=== PATIENT | male | born 2000 | race Caucasian/White ===

== ENCOUNTER 2018-04-29 10:00 | Emergency (ER) | payer OTHER ==
[~2018-04-29] VITALS: Ht 162.6 cm; Wt 68.5 kg
--- NOTE | 2018-04-29 12:15 | ED Cough/URI ---
General Chief Complaint: Cough/Cold/Flu Symptoms Stated Complaint: UPPER CHEST CONGESTION Nursing Triage Note: COUGH WITH CONGESTION Sepsis Screen: No Definite Risk Source: patient Exam Limitations: no limitations History of Present Illness Date Seen by Provider: Apr 29, 2018 Time Seen by Provider: 12:10 Initial Comments To ER with a nonproductive cough, pain in his chest with coughing for the past week. He denies sore throat or runny nose. He has had chills. He was seen at [facility] at the onset of this and prescribed prednisone and Zithromax. He finished the Zithromax yesterday but denies any improvement. No history of asthma. Timing/Duration: week Severity/Quality: dry cough Associated Symptoms: cough, fever/chills Allergies and Home Medications Allergies Coded Allergies: No Known Drug Allergies (Unverified , 04/29/18) Patient Home Medication List Home Medication List Reviewed: Yes Review of Systems Review of Systems Constitutional: see HPI, chills EENTM: see HPI Respiratory: see HPI, cough Cardiovascular: no symptoms reported Genitourinary: no symptoms reported Musculoskeletal: no symptoms reported Skin: no symptoms reported Psychiatric/Neurological: No Symptoms Reported Hematologic/Lymphatic: No Symptoms Reported Immunological/Allergic: no symptoms reported Past Ggsltiu-Xlclcd-Awrsrc Hx Patient Social History Recent Foreign Travel: No Contact w/Someone Who Travel: No Recent Infectious Disease Expo: No Physical Exam Vital Signs - First Documented 04/29/18 11:05 Temp 98.6 Pulse 47 Resp 14 B/P (MAP) 104/56 (72) Pulse Ox 91 O2 Delivery Room Air Capillary Refill : Less Than 3 Seconds Height: 5'4.00" Weight: 151lbs. oz. 68.299157bm; BMI Method:Estimated General Appearance: WD/WN, no apparent distress, other (no distress, speaks in full sentences, no wheezing, good air movement on lung auscultation. No throat erythema. He does have a persistent cough. He'll benefit from cough suppressant but he started on steroids and has been on antibiotic, this is viral.) Eyes: Bilateral Eye Normal Inspection, Bilateral Eye PERRL, Bilateral Eye EOMI HEENT: PERRL/EOMI, normal ENT inspection, TMs normal, pharynx normal Neck: non-tender, full range of motion Respiratory: lungs clear, normal breath sounds, no respiratory distress, no accessory muscle use; No wheezing Cardiovascular: regular rate, rhythm, no murmur Gastrointestinal: normal bowel sounds, non tender, soft Neurologic/Psychiatric: alert, normal mood/affect, oriented x 3 Skin: normal color, warm/dry Progress/Results/Core Measures Suspected Sepsis Recent Fever Within 48 Hours: No Infection Criteria Present: None New/Unexplained Altered Menta: No Sepsis Screen: No Definite Risk SIRS Temperature:98.6 Pulse: 47 Respiratory Rate: 14 Blood Pressure 104 /56 Mean: 72 Results/Orders Micro Results Microbiology 04/29/18 Influenza Types A,B Antigen (KEILA) - Final, Complete My Orders Orders - KALPESH ARELLANO APRN Influenza A And B Antigens (04/29/18 10:56) Chest Pa/Lat (2 View) (04/29/18 10:56) Vital Signs/I&O 04/29/18 11:05 Temp 98.6 Pulse 47 Resp 14 B/P (MAP) 104/56 (72) Pulse Ox 91 O2 Delivery Room Air Capillary Refill : Less Than 3 Seconds Blood Pressure Mean: 72 Departure Impression Primary Impression: Viral syndrome Disposition: 01 HOME, SELF-CARE Condition: Stable Departure-Patient Inst. Decision time for Depature: 12:12 Referrals: NO,LOCAL PHYSICIAN (PCP) Primary Care Physician Patient Instructions: VIRAL RESP ILLNESS-ADULT Add. Discharge Instructions: 1. Since the antibiotics did not work this suggests that her illness is viral in nature. The cough can persist for 2-3 weeks but since the cough is so intense U will benefit from a cough suppressant. Drink plenty of fluids, Tylenol and Motrin for any fevers. All discharge instructions reviewed with patient and/or family. Voiced understanding. Scripts Hydrocodone/Chlorphen P-Stirex (Tussionex Pennkinetic Susp) 115 Ml Shae.er.12h 5 ML PO BID, #60 ML Prov: KALPESH ARELLANO APRN 04/29/18 Work/School Note: Work Release Form Date Seen in the Emergency Department: Apr 29, 2018 Return to Work: May 02, 2018 KALPESH ARELLANO APRN Apr 29, 2018 12:15
[2018-04-29] MEDS ORDERED: HYDR115S2 PO (12:16)
[2018-04-29 12:24] VITALS: BP 104/56
--- NOTE | 2018-04-29 12:24 | Diagnostic Imaging Report ---
INDICATION: Cough and congestion. TECHNIQUE: PA and lateral views of the chest were obtained. FINDINGS: The heart size, mediastinal configuration, and pulmonary vascularity are within normal limits. There is no pleural effusion, pneumothorax, or pneumonia. The osseous structures are unremarkable. IMPRESSION: No acute cardiopulmonary abnormality. Dictated by: Dictated on workstation # [id number]
== END 2018-04-29 12:24 | disposition home or self-care (01) ==
LOC: ER 10:01
DX: B34.9 Viral infection, unspecified (principal)
CPT/HCPCS: 71046; 87804